=== PATIENT | male | born 1980 | race African-American/Black ===

== ENCOUNTER 2018-05-10 18:29 | Emergency (ER) | payer MEDICARE, MEDICAID ==
[2018-05-10] MEDS ORDERED: Lidocaine 1% w/Epinephrine 1:100K 20 ML VIAL ONE (21:11)
[2018-05-10] MEDS ORDERED: Morphine 4 MG/ML VIAL ONE (21:13)
[2018-05-10] MEDS ORDERED: Dexamethasone 4 mg/ml Vial ONE (21:13)
[2018-05-10] MEDS ORDERED: Clindamycin/D5W 900 mg/50 ml Premix Bag ONE (21:14)
== END 2018-05-10 22:27 | disposition home or self-care (01) ==
LOC: ERS 18:29
DX: K13.0 Diseases of lips (principal)
CPT/HCPCS: 10061; 87070; 87077; 87186; 87205; 96365; 96375; J1100; J2001; J2270; J3490

== ENCOUNTER 2018-05-11 23:03 | Emergency (ER) | payer MEDICARE, MEDICAID | END 2018-05-11 23:46 | disposition home or self-care (01) | LOC: ERS 23:03 | DX: Z48.817 Encounter for surgical aftercare following surgery on the skin and subcutaneous tissue (principal); I10 Essential (primary) hypertension; F32.9 Major depressive disorder, single episode, unspecified; F17.210 Nicotine dependence, cigarettes, uncomplicated | CPT/HCPCS: 99283 ==

== ENCOUNTER 2021-02-22 17:20 | Emergency (ER) | payer MEDICAID, MEDICARE ==
[2021-02-22] MEDS ORDERED: cefTRIAXone\\ROCEPHIN 500 MG VIAL ONE (17:53)
[2021-02-22] MEDS ORDERED: Lidocaine 1% PF 5 ML VIAL ONE (17:53)
[2021-02-22] MEDS ORDERED: Azithromycin 250 MG TAB ONE (18:01)
[2021-02-24 20:40] LABS: Chlam.trachomatis by PCR,Urine Not Detected (NotDetected)
== END 2021-02-22 18:12 | disposition home or self-care (01) ==
LOC: ERS 17:20
DX: Z20.2 Contact with and (suspected) exposure to infections with a predominantly sexual mode of transmission (principal); I10 Essential (primary) hypertension; F17.210 Nicotine dependence, cigarettes, uncomplicated
CPT/HCPCS: 87491; 87591; 96372; 99283; J0696